=== PATIENT | female | born 1985 | race Hispanic/Latino ===

== ENCOUNTER 2018-07-12 16:09 | Emergency (ER) | payer BC, MEDICAID ==
[2018-07-12 16:18] VITALS: RESP 18
[2018-07-12 16:19] VITALS: BMI 35.9
[2018-07-12] MEDS ORDERED: Povidone Iodine Topical 10% Sol ONE (17:23)
[2018-07-12] MEDS ORDERED: Lidocaine Hydrochloride 1% 10 ML ONE (17:23)
--- NOTE | 2018-07-12 18:31 | ED PDOC ---
HPI: Skin/Bite Injury Time Seen by Provider: 07/12/18 16:42 Chief Complaint (Nursing): Abnormal Skin Integrity Chief Complaint (Provider): Laceration History Per: Patient History/Exam Limitations: no limitations Current Symptoms Are (Timing): Still Present Location Of Injury: Right: Hand (thumb) Quality Of Symptoms: Painful Additional History Per: Patient Additional Complaint(s): 33yo female, history of type 1 diabetes and currently on insulin, comes to ER reporting a laceration to her right thumb, which she sustained while washing a glass that broke. She reports some numbness in the thumb but denies any paresthesia; she also denies any glass shattering. Her tetanus vaccine is up to date. Past Medical History Reviewed: Historical Data, Nursing Documentation, Vital Signs Vital Signs: Last Vital Signs Temp 98.4 F 07/12/18 16:18 Pulse 96 H 07/12/18 16:18 Resp 18 07/12/18 16:18 BP 118/62 07/12/18 16:18 Pulse Ox 99 07/12/18 16:18 - Medical History PMH: Asthma, Diabetes, Graves' Disease - Surgical History Surgical History: No Surg Hx - Family History Family History: States: No Known Family Hx - Home Medications Home Medications: Ambulatory Orders Medication Instructions Recorded Albuterol HFA [Ventolin HFA 90 1 puff IH Q4 PRN #1 inh 02/02/15 mcg/actuation (8 g)] Prednisone 20 mg PO DAILY #3 tab 02/02/15 Cephalexin [cephalexin] 500 mg PO Q6 #5 cap 07/12/18 Ibuprofen [Motrin Tab] 600 mg PO Q6 PRN 7 Days tab 07/12/18 Sulfamethoxazole/Trimethoprim 2 tab PO BID #5 tab 07/12/18 [Bactrim DS 800 mg-160 mg] - Allergies Allergies/Adverse Reactions: Allergies Allergy/AdvReac Type Severity Reaction Status Date / Time No Known Allergies Allergy Verified 02/02/15 11:04 Review of Systems Skin: Positive for: Other (laceration to right thumb) Neurological: Positive for: Numbness (right thumb). Negative for: Weakness Physical Exam - Reviewed Nursing Documentation Reviewed: Yes Vital Signs Reviewed: Yes - Physical Exam Appears: Positive for: Non-toxic, No Acute Distress Skin: Positive for: Normal Color Cardiovascular/Chest: Negative for: Tachycardia Respiratory: Negative for: Respiratory Distress Pulses-Radial (L): 2+ Pulses-Radial (R): 2+ Extremity: Positive for: Normal ROM (FROM of right thumb), Capillary Refill (< 2 seconds), Other (9cm curvilinear laceration going from ventral to dorsal surface at base of right thumb). Negative for: Deformity Neurological/Psych: Positive for: Awake, Alert, Oriented (x 3) - ECG O2 Sat by Pulse Oximetry: 99 (RA) Pulse Ox Interpretation: Normal Medical Decision Making Medical Decision Makinyo female with hand laceration Plan: -- hand surgeon consult [address] De Los Santos, who states laceration repair is appropriate and no further treatment is necessary. Plan for laceration repair discussed with patient, who is agreeable. 1829 Laceration repair - see procedure note. Lidocaine 1% used for local anesthesia. 192 Patient informed on wound care, instructed to follow up in 10-14 days for suture removal. Scribe Attestation: Documented by Cheryl Rodriguez acting as a scribe for [facility]. Provider Scribe Attestation: All medical record entries made by the Scribe were at my direction and personally dictated by me. I have reviewed the chart and agree that the record accurately reflects my personal performance of the history, physical exam, medical decision making, and the department course for this patient. I have also personally directed, reviewed, and agree with the discharge instructions and disposition. Disposition - Clinical Impression Clinical Impression: Thumb laceration - Patient ED Disposition Is Patient to be Admitted: No - Disposition Referrals: Sugar Kaur MD [Family Provider] - Cali De Los Santos MD [Staff Provider] - Disposition: Routine/Home Disposition Time: 19:21 Condition: STABLE Additional Instructions: You have [address] that will need to be removed in 10 - 14 days. Keep area covered for the next 24hrs and then remove dressing and wash gently with soap and water. Keep open to the air as frequently as possible over the next few days but cover when leaving the house. Use Tylenol or Ibuprofen for pain. Return to ER if you develop fevers or pus drainage from wound. Apply Bacitracin 1 - 2 times per day. Prescriptions: Cephalexin [cephalexin] 500 mg PO Q6 #5 cap Ibuprofen [Motrin Tab] 600 mg PO Q6 PRN 7 Days tab PRN Reason: Pain, Moderate (4-7) Sulfamethoxazole/Trimethoprim [Bactrim DS 800 mg-160 mg] 2 tab PO BID #5 tab Instructions: Laceration Repair With Stitches (DC) Forms: [employer] (Lithuanian), [facility] ED School/Work Excuse Print Language: BULGARIAN Procedure: Wound Repair - Time Performed Time Performed: 16:30 - Time Out Time Out: Side verified, Site verified, Patient ID confirmed - Consent Obtained Consent obtained: Verbal - Performed by Performed by: Mid-level Provider - Indications Indication(s):: Laceration - Location Location:: Right Finger:: Thumb Shape:: Curvilinear Dimensions Length cm: 9 - Anesthetic Technique Anesthetic Technique: Local Local/Regional Anesthetic:: Lidocaine 1% - Debris Debris:: None - Complexity Complexity:: Simple (one layer) - Wound repair method Sutures:: # (14), Size (4:0), Type (proline), Technique (simple interrupted) - Patient tolerated procedure Patient Tolerated Procedure:: Well
[2018-07-12] MEDS: Lidocaine 1% Inj (20ml) IJ STA (19:50)
[2018-07-12 21:04] VITALS: BP 122/70; PULSE 78; TEMP 98
[2018-07-13 02:18] VITALS: O2SAT 99
== END 2018-07-12 19:50 | disposition home or self-care (01) ==
LOC: H.ER 16:09
DX: S61.011A Laceration without foreign body of right thumb without damage to nail, initial encounter (principal); W25.XXXA Contact with sharp glass, initial encounter; Y92.89 Other specified places as the place of occurrence of the external cause; E05.00 Thyrotoxicosis with diffuse goiter without thyrotoxic crisis or storm; E10.9 Type 1 diabetes mellitus without complications; Z79.4 Long term (current) use of insulin